=== PATIENT | female | born 1945 | race Caucasian/White ===

== ENCOUNTER 2018-03-19 15:44 | Emergency (ER) | payer MEDICARE, BC ==
[~2018-03-19] VITALS: Ht 167.6 cm; Wt 136.1 kg
[2018-03-19 16:36] VITALS: BP 121/63
--- NOTE | 2018-03-19 17:32 | RAD ---
Indication:ER PATIENT. CHRONIC RIGHT KNEE PAIN MORE ACUTE X2 WEEKS. NO PRIORS TECHNIQUE: 4 views of the right knee COMPARISON:None FINDINGS/ impression: No acute fracture or dislocation. Advanced tricompartmental osteoarthritis. Small suprapatellar effusion. Electronically signed by: Milton Colby DO (03/19/2018 5:28 PM) [facility]
[2018-03-19] MEDS ORDERED: ACET-704 PO (17:39)
--- NOTE | 2018-03-19 17:41 | PHYS DOC ---
Past Medical History Past Medical History: Asthma, Bronchitis, Hypertension, Hypothyroid, Other Additional Past Medical Histor: WATER RETENTION,CHRONIC PAIN Past Surgical History: Other Additional Past Surgical Histo: R ORIF ANKLE/REMOVAL HARDWARE Alcohol Use: None Drug Use: None Adult General Chief Complaint Chief Complaint: KNEE INJURY HPI HPI Patient is a 72 year old [f__sex] who presents with [] Review of Systems Review of Systems Constitutional: Denies fever or chills [] Eyes: Denies change in visual acuity, redness, or eye pain [] HENT: Denies nasal congestion or sore throat [] Respiratory: Denies cough or shortness of breath [] Cardiovascular: No additional information not addressed in HPI [] GI: Denies abdominal pain, nausea, vomiting, bloody stools or diarrhea [] : Denies dysuria or hematuria [] Musculoskeletal: Denies back pain or joint pain [] Integument: Denies rash or skin lesions [] Neurologic: Denies headache, focal weakness or sensory changes [] Endocrine: Denies polyuria or polydipsia [] All other systems were reviewed and found to be within normal limits, except as documented in this note. Allergies Allergies Allergies Coded Allergies Type Severity Reaction Last Updated Verified Penicillins Allergy Unknown 03/19/18 Yes Physical Exam Physical Exam Constitutional: Well developed, well nourished, no acute distress, non-toxic appearance. [] HENT: Normocephalic, atraumatic, bilateral external ears normal, oropharynx moist, no oral exudates, nose normal. [] Eyes: PERRLA, EOMI, conjunctiva normal, no discharge. [] Neck: Normal range of motion, no tenderness, supple, no stridor. [] Cardiovascular:Heart rate regular rhythm, no murmur [] Lungs & Thorax: Bilateral breath sounds clear to auscultation [] Abdomen: Bowel sounds normal, soft, no tenderness, no masses, no pulsatile masses. [] Skin: Warm, dry, no erythema, no rash. [] Back: No tenderness, no CVA tenderness. [] Extremities: No tenderness, no cyanosis, no clubbing, ROM intact, no edema. [] Neurologic: Alert and oriented X 3, normal motor function, normal sensory function, no focal deficits noted. [] Psychologic: Affect normal, judgement normal, mood normal. [] Current Patient Data Vital Signs Vital Signs Date Time Temp Pulse Resp B/P (MAP) Pulse Ox O2 Delivery O2 Flow Rate FiO2 03/19/18 16:36 98.2 97 20 121/63 (82) 95 Room Air 98.2 EKG EKG [] Radiology/Procedures Radiology/Procedures [] Course & Med Decision Making Course & Med Decision Making Pertinent Labs and Imaging studies reviewed. (See chart for details) [] Dragon Disclaimer Dragon Disclaimer This electronic medical record was generated, in whole or in part, using a voice recognition dictation system. Departure Departure Impression: Primary Impression: Arthritis of knee, degenerative Disposition: HOME, SELF-CARE Condition: STABLE Referrals: UNKNOWN PCP NAME (PCP) RENZO MCGOWAN II, MD Patient Instructions: Arthritis, Degenerative-Brief Additional Instructions: Take the pain medication as directed. Do not drive or operate heavy machinery while taking this medication. Follow-up with your primary care provider or orthopedics for further evaluation and treatment of this degenerative arthritis. If worsening return to the emergency department. Scripts Acetaminophen With Codeine (TYLENOL WITH CODEINE #3 TABLET) 1 Each Tablet 1 TAB PO PRN Q4HRS PRN for PAIN, #20 TAB Prov: PILAR BRICENO APRN 03/19/18 PILAR BRICENO APRN Mar 19, 2018 17:40
== END 2018-03-19 18:13 | disposition home or self-care (01) ==
LOC: ER 15:44
DX: M17.11 Unilateral primary osteoarthritis, right knee (principal); G89.29 Other chronic pain; J45.909 Unspecified asthma, uncomplicated; I10 Essential (primary) hypertension; E03.9 Hypothyroidism, unspecified; Z88.0 Allergy status to penicillin
CPT/HCPCS: 73564; 99284